=== PATIENT | male | born 1970 | race Hispanic/Latino ===

== ENCOUNTER 2017-08-26 09:10 | Outpatient (CLI) | payer OTHER | END 2017-08-26 09:11 | disposition home or self-care (01) | LOC: BICRAD 09:10 | PROVIDERS: ATTEND Family Medicine | DX: M25.521 Pain in right elbow (principal); M19.021 Primary osteoarthritis, right elbow | CPT/HCPCS: 36415; 80053; 80061; 85025 ==

== ENCOUNTER 2022-03-08 08:46 | Outpatient (CLI) | payer BC | END 2022-03-08 08:47 | disposition home or self-care (01) | LOC: TBSIIMAG 08:46 | PROVIDERS: ATTEND Family Medicine | DX: M51.16 Intervertebral disc disorders with radiculopathy, lumbar region (principal); M47.26 Other spondylosis with radiculopathy, lumbar region; M48.061 Spinal stenosis, lumbar region without neurogenic claudication | CPT/HCPCS: 72148 ==

== ENCOUNTER 2022-05-22 16:15 | Outpatient (CLI) | payer BC | END 2022-05-22 16:16 | disposition home or self-care (01) | LOC: BICRAD 16:15 | PROVIDERS: ATTEND Neurological Surgery | DX: M48.062 Spinal stenosis, lumbar region with neurogenic claudication (principal); M47.816 Spondylosis without myelopathy or radiculopathy, lumbar region | CPT/HCPCS: 72120 ==